=== PATIENT | female | born 1980 | race Caucasian/White ===

== ENCOUNTER 2017-07-27 23:54 | Emergency (ER) | payer MEDICAID ==
[~2017-07-27] VITALS: Ht 160 cm; Wt 99.8 kg
--- NOTE | 2017-07-28 00:02 | NUR ---
PT BIBSELF C/O BB SELF; LEFT HAND/ WRIST PAIN X 1 MONTH SORE THROAT X 1 WEEK. PT AOX3 RR EVEN AND UNLABORED. NO SOB NOTED. NAD NOTED. NO NVD AT THIS TIME. PT GOWNED AND PLACED ON MONITOR WAITING FOR MD WRIGHT.
--- NOTE | 2017-07-28 00:21 | NUR ---
RADIOLOGY AT BEDSIDE FOR XRAY
[2017-07-28 01:35] VITALS: BP 122/71
--- NOTE | 2017-07-28 01:35 | NUR ---
Patient discharged to home in stable condition. Written and verbal after care instructions given. Patient verbalizes understanding of instruction. PT ambulatory with a steady gait VITAL SIGNS WITHIN NORMAL LIMITS.
== END 2017-07-28 01:42 | disposition home or self-care (01) ==
LOC: ER 07-28
DX: M77.8 Other enthesopathies, not elsewhere classified (principal); J39.2 Other diseases of pharynx; E05.80 Other thyrotoxicosis without thyrotoxic crisis or storm
CPT/HCPCS: 29125; 73110; 99284; A4606; Z7610